=== PATIENT | female | born 1950 | race Caucasian/White ===

== ENCOUNTER 2025-04-19 16:38 | Inpatient (IN) | payer BC, MEDICAID, MEDICARE ==
[~2025-04-19] VITALS: Ht 157.5 cm; Wt 50.8 kg
[2025-04-19 16:39] VITALS: O2SAT 99
[2025-04-19] MEDS: PIPERACILLIN/TAZO 3.375G/50ML 50 ML IV ONE (17:37)
[2025-04-19] MEDS: SODIUM CHLORIDE 0.9% (SEPSIS BOLUS) IV ONE (17:37)
[2025-04-19 17:47] LABS: HEMATOCRIT. 30.2 % (36.0-48.0); HEMOGLOBIN. 9.5 g/dL (12.0-16.0); MEAN PLATELET VOLUME 11.5 fl (7.4-10.4); PLATELET 80 x1000/uL (130-400); RED BLOOD CELL COUNT 3.14 mill/uL (4.2-5.4); RED CELL DISTRIBUTION WIDTH 15.2 % (11.6-14.6)
[2025-04-19 17:57] LABS: INR 1.3
[2025-04-19 18:01] LABS: CREATININE 2.4 mg/dL (0.6-1.0)
[2025-04-19 18:02] LABS: ETHANOL BLOOD < 10 mg/dL (<10); PROTEIN TOTAL 5.1 g/dL (6.0-8.3); TROPONIN I HIGH SENSITIVITY 32 ng/L (3.0-34); UREA NITROGEN BLOOD 29 mg/dL (9-23)
[2025-04-19 18:03] LABS: ASPARTATE AMINOTRANSFERASE 137 IU/L (<34); BILIRUBIN DIRECT 0.2 mg/dL (<=3.0)
[2025-04-19 18:04] LABS: BG BASE EXCESS -3.2 mmol/L (-2.0-3.0); BG CARBOXYHEMOGLOBIN 0.8 % (0.5-1.5); BG DEOXYHEMOGLOBIN 1.5 % (0.0-5.0); BG FLOW(L/min) 5.00 L/min; BG FRACTION INSPIRED OXYGEN 40; BG HCO3 ACT 20.8 mmol/L (21.0-28.0); BG METHEMOGLOBIN 0.1 % (0.5-1.5); BG OXYGEN SATURATION 98.5 % (94.0-98.0); BG OXYHEMOGLOBIN 97.6 % (94.0-98.0); BG PCO2 33.8 mmHg (32.0-45.0); BG PH 7.408 (7.350-7.450); BG PO2 118.0 mmHg (83.0-108.0); BG SAMPLE SITE RIGHT RADIAL; BG TOTAL HEMOGLOBIN 10.5 g/dL (12.0-16.0); BG VENT MODE NASAL CANNULA
[2025-04-19 18:04] LABS: BILIRUBIN TOTAL 0.4 mg/dL (0.1-1.0)
[2025-04-19] MEDS: VANCOMYCIN 1G PREMIX 200 ML IV ONE (18:21)
[2025-04-19 19:05] LABS: INFLUENZA TYPE A Presumptive Negative (Pres. Neg.)
[2025-04-19 19:06] LABS: INFLUENZA TYPE B Presumptive Negative (Pres. Neg.); RESPIRATORY SYNCYTIAL VIRUS Not Detected (Not Detectd)
[2025-04-19] MEDS: MAGNESIUM 2 G PREMIX 50 ML IV ONE (19:40)
[2025-04-19] MEDS: INSULIN REGULAR (HUMULIN R) 1000UNITS/10ML VIAL IV ONE (19:41)
[2025-04-19] MEDS: SODIUM CHLORIDE 0.9% 1,000 ML IV ONE (20:03)
[2025-04-19] MEDS: KCL 20MEQ/100ML PREMIX 100 ML IV SCH (20:03)
[2025-04-19 20:04] LABS: TROPONIN I HIGH SENSITIVITY 30 ng/L (3.0-34)
[2025-04-19 20:21] LABS: BAND% 17.0 % (1.0-6.0); LYMPHOCYTES % MANUAL 5.0 % (20.0-60.0); METAMYELOCYTES % 6.0 % (0-0); MONOCYTES % MANUAL 7.0 % (2.0-8.0); MYELOCYTES % 4.0 % (0-0); NEUTROPHILS % MANUAL 61.0 % (45.0-75.0); PLATELET ESTIMATE NORMAL
[2025-04-19] MEDS: NOREPINEPHRINE 8MG/250ML PMX 250 ML IV ONE (21:02)
[2025-04-20] VITALS (82 sets, daily range): BP systolic 76–186; BP diastolic 55–157; PULSE 79–91; RESP 13–37; TEMP 36.5–36.7; O2SAT 87–100
[2025-04-20] MEDS ORDERED: DEXTROSE 50% WATER 50ML SYRINGE IV PRN ×2 (02:15→22:30)
[2025-04-20] MEDS ORDERED: SODIUM CHLORIDE 0.9% 1,000 ML IV SCH (02:30)
[2025-04-20] MEDS: SODIUM CHLORIDE 0.9% 1,000 ML IV ONE (02:31)
[2025-04-20] MEDS: KCL 20MEQ/100ML PREMIX 100 ML IV NR (02:35)
[2025-04-20] MEDS: SODIUM CHLORIDE 0.9% 1,000 ML IV SCH (02:36)
[2025-04-20] MEDS: NOREPINEPHRINE 8MG/250ML PMX 250 ML IV PRN (02:37)
[2025-04-20] MEDS: INSULIN GLARGINE 100 UNITS/ML SUBCUT SCH (02:38)
[2025-04-20] MEDS: BLOOD SUGAR DIAGNOSTIC STRIP TEST SCH (04:00)
[2025-04-20] MEDS: INSULIN LISPRO 100 UNITS/ML SUBCUT SCH (04:01)
[2025-04-20] MEDS: ONDANSETRON HCL 4MG/2ML INJ IV PRN (04:46)
[2025-04-20] MEDS ORDERED: PNEUMOCOCCAL 20-VAL CONJ-DIP CRM 0.5ML IM ONE (05:30)
[2025-04-20 06:01] LABS: HEPATITIS C AB NON REACTIVE (Neg) (Negative)
[2025-04-20 06:05] LABS: CREATININE 1.5 mg/dL (0.6-1.0); LDL CHOLESTEROL 23 mg/dL (5-100); PLATELET 79 x1000/uL (130-400); RED BLOOD CELL COUNT 3.29 mill/uL (4.2-5.4); RED CELL DISTRIBUTION WIDTH 15.6 % (11.6-14.6); TRIGLYCERIDE 112 mg/dL (0-150); UREA NITROGEN BLOOD 25 mg/dL (9-23)
[2025-04-20 06:07] LABS: PHOSPHORUS 2.5 mg/dL (2.5-4.9)
[2025-04-20] MEDS ORDERED: BLOOD SUGAR DIAGNOSTIC STRIP TEST SCH (06:30)
[2025-04-20] MEDS ORDERED: INSULIN LISPRO 100 UNITS/ML SUBCUT SCH (07:00)
[2025-04-20] MEDS: PIPERACILLIN/TAZO 3.375G/50ML 50 ML IV SCH (08:26)
[2025-04-20] MEDS: PANTOPRAZOLE 40MG DR TABLET PO SCH (08:37)
[2025-04-20] MEDS: MAGNESIUM 1 G PREMIX 100 ML IV NR (09:51)
[2025-04-20 10:22] LABS: BG BASE EXCESS -5.3 mmol/L (-2.0-3.0); BG CARBOXYHEMOGLOBIN 0.3 % (0.5-1.5); BG DEOXYHEMOGLOBIN 1.9 % (0.0-5.0); BG FLOW(L/min) 3.00 L/min; BG FRACTION INSPIRED OXYGEN 32; BG HCO3 ACT 19.6 mmol/L (21.0-28.0); BG METHEMOGLOBIN 0.3 % (0.5-1.5); BG OXYGEN SATURATION 98.1 % (94.0-98.0); BG OXYHEMOGLOBIN 97.5 % (94.0-98.0); BG PCO2 36.2 mmHg (32.0-45.0); BG PH 7.352 (7.350-7.450); BG PO2 101.1 mmHg (83.0-108.0); BG SAMPLE SITE RIGHT RADIAL; BG TOTAL HEMOGLOBIN 10.5 g/dL (12.0-16.0); BG VENT MODE NASAL CANNULA
[2025-04-20 14:29] LABS: CLARITY URINE CLOUDY (CLEAR); COLOR URINE YELLOW (YELLOW); GLUCOSE URINE 3+ (NEGATIVE); KETONES URINE NEGATIVE (NEGATIVE); LEUKOCYTE ESTERASE URINE 1+ (NEGATIVE); NITRITE URINE NEGATIVE (NEGATIVE); OCCULT BLOOD URINE 2+ (NEGATIVE); PH URINE 5.5 (4.5-8.0); PROTEIN URINE 1+ (NEGATIVE); SPECIFIC GRAVITY URINE 1.023 (1.005-1.030); UROBILINOGEN URINE 0.2 E.U./dL (0.2-1.0)
[2025-04-20 15:07] LABS: *AMPHETAMINES SCREEN URINE NEGATIVE (NEGATIVE); *BARBITURATES SCREEN URINE NEGATIVE (NEGATIVE); *BENZODIAZEPINES SCREEN URINE NEGATIVE (NEGATIVE); *COCAINE SCREEN URINE NEGATIVE (NEGATIVE); CANNABINOID URINE SCREEN NEGATIVE (NEGATIVE); ECSTASY MDMA SCREEN URINE NEGATIVE (NEGATIVE); METHADONE URINE SCREEN NEGATIVE (NEGATIVE); OPIATES URINE SCREEN NEGATIVE (NEGATIVE); PHENCYCLIDINE URINE SCREEN NEGATIVE (NEGATIVE)
[2025-04-20 15:18] LABS: WBC URINE TNTC /hpf (0-2)
[2025-04-20 15:19] LABS: BACTERIA URINE 3+; RBC URINE 0-2 /hpf (0-2); SQUAMOUS EPITHELIAL CELL URINE FEW /lpf (RARE/1+)
[2025-04-20] MEDS: PIPERACILLIN/TAZO 3.375G/50ML IV SCH (15:29)
[2025-04-20] MEDS: VANCOMYCIN 500MG PREMIX 100 ML IV SCH (18:07)
[2025-04-20 22:47] LABS: HEMATOCRIT. 31.6 % (36.0-48.0); HEMOGLOBIN. 10.0 g/dL (12.0-16.0); MEAN PLATELET VOLUME 11.3 fl (7.4-10.4); PLATELET 58 x1000/uL (130-400); RED BLOOD CELL COUNT 3.34 mill/uL (4.2-5.4); RED CELL DISTRIBUTION WIDTH 15.7 % (11.6-14.6)
[2025-04-20 23:00] LABS: CREATININE 0.8 mg/dL (0.6-1.0); UREA NITROGEN BLOOD 20 mg/dL (9-23)
[2025-04-20 23:20] LABS: BAND% 9.0 % (1.0-6.0); EOSINOPHILS % MANUAL 1.0 % (0.0-5.0); LYMPHOCYTES % MANUAL 6.0 % (20.0-60.0); MONOCYTES % MANUAL 7.0 % (2.0-8.0); NEUTROPHILS % MANUAL 77.0 % (45.0-75.0); PLATELET ESTIMATE DECREASED
[2025-04-21] VITALS: BP 113/51; PULSE 90; RESP 20; O2SAT 99
[2025-04-21 04:00] VITALS: BP 130/58; PULSE 87; RESP 20; TEMP 36.6; O2SAT 100
[2025-04-21] MEDS: BLOOD SUGAR DIAGNOSTIC STRIP TEST SCH (06:02)
[2025-04-21] MEDS: INSULIN LISPRO 100 UNITS/ML SUBCUT SCH (06:02)
[2025-04-21 07:25] LABS: CREATININE 0.8 mg/dL (0.6-1.0); UREA NITROGEN BLOOD 21 mg/dL (9-23)
[2025-04-21 07:39] LABS: HEMATOCRIT. 30.7 % (36.0-48.0); HEMOGLOBIN. 10.0 g/dL (12.0-16.0); MEAN PLATELET VOLUME 11.9 fl (7.4-10.4); PLATELET 56 x1000/uL (130-400); RED BLOOD CELL COUNT 3.35 mill/uL (4.2-5.4); RED CELL DISTRIBUTION WIDTH 15.3 % (11.6-14.6)
[2025-04-21 07:42] LABS: VITAMIN B12 SERUM 1603 pg/mL (211-911)
[2025-04-21 08:00] VITALS: BP 146/60; PULSE 85; RESP 18; TEMP 36.2; O2SAT 100
[2025-04-21] MEDS: VANCOMYCIN 750MG/150ML (BAXTER) IV SCH (11:11)
[2025-04-21 12:00] VITALS: BP 121/55; PULSE 79; RESP 20; TEMP 36.4; O2SAT 100
[2025-04-21 16:00] VITALS: BP 139/60; PULSE 80; RESP 20; TEMP 36.2; O2SAT 100
[2025-04-21 17:51] LABS: LYMPHOCYTES % MANUAL 5.0 % (20.0-60.0); MONOCYTES % MANUAL 5.0 % (2.0-8.0); NEUTROPHILS % MANUAL 90.0 % (45.0-75.0); PLATELET ESTIMATE DECREASED
[2025-04-21 20:00] VITALS: BP 152/63; PULSE 82; RESP 18; TEMP 35.8; O2SAT 98
[2025-04-22] VITALS: BP 152/63; PULSE 82; RESP 18; TEMP 35.8; O2SAT 98
[2025-04-22 04:00] VITALS: BP 122/52; PULSE 76; RESP 17; TEMP 36.2; O2SAT 99
[2025-04-22 08:00] VITALS: BP 147/66; PULSE 75; RESP 16; TEMP 36.2; O2SAT 100
[2025-04-22 12:00] VITALS: BP 148/60; PULSE 83; RESP 17; TEMP 36.3; O2SAT 98
[2025-04-22] MEDS: POTASSIUM CHLORIDE 20MEQ TABLET SR PO NR (13:15)
[2025-04-22] MEDS: MAGNESIUM 2 G PREMIX 50 ML IV NR (13:30)
[2025-04-22 16:00] VITALS: BP 135/59; PULSE 75; RESP 16; TEMP 36.4; O2SAT 98
[2025-04-22 17:30] LABS: CREATININE 0.7 mg/dL (0.6-1.0); UREA NITROGEN BLOOD 12 mg/dL (9-23)
[2025-04-22 20:00] VITALS: BP 130/53; PULSE 83; RESP 20; TEMP 36.4; O2SAT 98
[2025-04-22 22:12] LABS: BASOPHILS % 0.3 % (0.0-2.0); EOSINOPHILS % 0.5 % (0.0-5.0); HEMATOCRIT. 33.0 % (36.0-48.0); HEMOGLOBIN. 10.7 g/dL (12.0-16.0); LYMPHOCYTES % 11.7 % (20.0-50.0); MEAN PLATELET VOLUME 11.7 fl (7.4-10.4); MONOCYTES % 7.0 % (2.0-8.0); NEUTROPHILS % 80.5 % (40.0-76.0); PLATELET 63 x1000/uL (130-400); RED BLOOD CELL COUNT 3.59 mill/uL (4.2-5.4); RED CELL DISTRIBUTION WIDTH 15.4 % (11.6-14.6)
[2025-04-22] MEDS ORDERED: LEVO750T68 MT (23:38)
[2025-04-23] VITALS: BP 132/75; PULSE 82; RESP 20; TEMP 36.6; O2SAT 99
[2025-04-23 04:00] VITALS: BP 151/58; PULSE 84; RESP 18; TEMP 36.3; O2SAT 98
[2025-04-23 06:36] LABS: BASOPHILS % 0.3 % (0.0-2.0); EOSINOPHILS % 0.5 % (0.0-5.0); HEMATOCRIT. 30.2 % (36.0-48.0); HEMOGLOBIN. 9.9 g/dL (12.0-16.0); LYMPHOCYTES % 17.5 % (20.0-50.0); MEAN PLATELET VOLUME 10.9 fl (7.4-10.4); MONOCYTES % 11.4 % (2.0-8.0); NEUTROPHILS % 70.3 % (40.0-76.0); PLATELET 70 x1000/uL (130-400); RED BLOOD CELL COUNT 3.36 mill/uL (4.2-5.4); RED CELL DISTRIBUTION WIDTH 15.2 % (11.6-14.6)
[2025-04-23 06:37] LABS: CREATININE 0.6 mg/dL (0.6-1.0)
[2025-04-23 06:38] LABS: UREA NITROGEN BLOOD 10 mg/dL (9-23)
[2025-04-23 06:40] LABS: PHOSPHORUS 1.3 mg/dL (2.5-4.9)
[2025-04-23 08:00] VITALS: BP 145/107; PULSE 84; RESP 14; TEMP 36.5; O2SAT 96
[2025-04-23] MEDS ORDERED: POTASSIUM PHOSPHATE 30 MMOL in SODIUM CHLORIDE 0.9% 490 ML IV SCH (11:00)
[2025-04-23 12:00] VITALS: BP 154/63; PULSE 84; RESP 15; TEMP 36.1; O2SAT 96
[2025-04-23] MEDS ORDERED: INSU100I28 SQ (12:19)
[2025-04-23 16:00] VITALS: BP 158/59; PULSE 65; RESP 15; TEMP 35.9; O2SAT 96
[2025-04-23] MEDS: LEVOFLOXACIN 250MG TABLET PO SCH (17:07)
[2025-04-23 19:48] VITALS: BP 158/59; PULSE 65; RESP 16; TEMP 97.6
[2025-04-24 01:44] VITALS: BP 136/82; PULSE 82; RESP 19; TEMP 36.2; O2SAT 99
== END 2025-04-23 20:56 | disposition home or self-care (01) | DRG 871 ==
LOC: ER 16:38 → EDBEDREQSVC 22:47 → EDBEDREQ 22:47 → EDBEDREQTM 22:47 → MICUNO 04-20 00:03 → 6WST 04-20 21:40
PROVIDERS: ADMIT Internal Medicine; ATTEND Internal Medicine
DX: A41.51 Sepsis due to Escherichia coli [E. coli] (principal); E11.10 Type 2 diabetes mellitus with ketoacidosis without coma; R65.21 Severe sepsis with septic shock; J96.01 Acute respiratory failure with hypoxia; G93.41 Metabolic encephalopathy; R16.0 Hepatomegaly, not elsewhere classified; N17.9 Acute kidney failure, unspecified; N39.0 Urinary tract infection, site not specified; D69.6 Thrombocytopenia, unspecified; E11.22 Type 2 diabetes mellitus with diabetic chronic kidney disease; I12.9 Hypertensive chronic kidney disease with stage 1 through stage 4 chronic kidney disease, or unspecified chronic kidney disease; D64.9 Anemia, unspecified; N18.9 Chronic kidney disease, unspecified; J98.11 Atelectasis; M81.0 Age-related osteoporosis without current pathological fracture; E78.5 Hyperlipidemia, unspecified; E83.42 Hypomagnesemia; E87.6 Hypokalemia; R74.01 Elevation of levels of liver transaminase levels; N20.0 Calculus of kidney; Z90.49 Acquired absence of other specified parts of digestive tract
CPT/HCPCS: 36415; 36556; 36600; 71045; 71250; 74176; 76705; 80048; 80061; 80076; 80202; 80305; 80320; 81003; 82010; 82140; 82375; 82550; 82607; 82805; 82962; 83036; 83605; 83735; 83880; 83930; 84100; 84145; 84484; 85025; 85027; 86705; 87070; 87077; 87186; 87340; 87420; 87426; 87804; 93005; 93970; 96365; 96366; 96367; 96368; 96375; 99291; 99292; A4606; J0690; J1815; J2405; J2543; J3373; J3475; J3480; J3490; J7030; J7040; G0480